=== PATIENT | female | born 1925 | race Caucasian/White ===

== ENCOUNTER 2016-09-27 14:33 | Outpatient (CLI) | payer MEDICARE, MEDICAID ==
[2016-09-27 14:45] LABS: Bilirubin Negative (Negative); Blood, Urine Trace (Negative); Clarity Cloudy (Clear); Glucose, Urine (Dipstick) Negative (Negative); Leukocyte Moderate (Negative); Nitrite Negative (Negative); Protein, Urine (Dipstick) Negative (Neg-Trace); Urobilinogen 0.2 mg/dL (0.2-1.0); pH, Urine 5.5 (5.0-9.0)
[2016-09-27 14:49] LABS: Specific Gravity, Urine 1.008 (1.005-1.030)
== END 2016-09-27 14:34 | disposition home or self-care (01) ==
LOC: BURLAB 14:33
PROVIDERS: ATTEND Clinical Nurse Specialist Medical-Surgical
DX: N39.0 Urinary tract infection, site not specified (principal)
CPT/HCPCS: 81003; 87077; 87086; 87186